=== PATIENT | female | born 1975 | race Caucasian/White ===

== ENCOUNTER 2023-01-26 11:41 | Observation (INO) ==
[2023-01-26] MEDS ORDERED: SODIUM CHLORIDE 0.9% 1000ML 1,000 ML IV ONE (11:51)
[2023-01-26 12:06] LABS: Basophils # (auto) 0.04 K/uL (0-0.2); Basophils % (auto) 0.4 %; Eosinophils # (auto) 0.15 K/uL (0-0.50); Eosinophils % (auto) 1.5 %; Hematocrit (blood only) 46.8 % (37.0-47.0); Hemoglobin 15.7 g/dl (12.0-16.0); Immature Granulocytes # (auto) 0.04 K/uL (0.01-0.20); Immature Granulocytes % (auto) 0.4 %; Lymphocytes # (auto) 2.82 K/uL (1.2-3.4); Lymphocytes % (auto) 28.4 %; Mean Corpuscular Hemoglobin 31.7 pg (25.0-34.0); Mean Corpuscular Hgb Conc 33.5 g/dL (32.0-36.0); Mean Corpuscular Volume 94.4 fL (80.0-100.0); Mean Platelet Volume 10.1 fL (9.4-12.4); Monocytes # (auto) 0.73 K/uL (0.11-0.59); Monocytes % (auto) 7.4 %; Neutrophils # (auto) 6.14 K/uL (1.40-6.50); Neutrophils % (auto) 61.9 %; Platelet Count 284 K/uL (130-400); RDW Coefficient of Variation 12.6 % (11.5-14.5); RDW Standard Deviation 43.5 fL (36.4-46.3); Red Blood Count 4.96 M/uL (4.20-5.40); White Blood Count 9.92 K/ul (4.8-10.8)
[2023-01-26] MEDS ORDERED: OPTIRAY 320 500ml IV ONE (12:11)
[2023-01-26 12:12] LABS: iSTAT Creatinine 0.6 mg/dl (0.6-1.3); iSTAT Hemoglobin 16.7 g/dl (12.0-16.0); iSTAT Ionized Calcium 1.23 mmol/l (1.12-1.32); iSTAT Potassium 3.7 mmol/L (3.3-5.0)
[2023-01-26 12:17] LABS: INR 0.9 (0.9-1.1); Prothrombin Time 10.3 Seconds (9.0-12.0)
[2023-01-26 12:27] LABS: Alanine Aminotransferase 32 U/L (7-52); Albumin Globulin Ratio 1.4 (0.9-2); Albumin Level 4.6 gm/dl (3.4-5.0); Alkaline Phosphatase 87 U/L (34-104); Anion Gap 8 (3-11); Aspartate Aminotransferase 35 U/L (13-39); BUN Creatinine Ratio 13.4 (10-20); Bilirubin,Total 0.3 mg/dl (0.2-1.0); Blood Urea Nitrogen 9 mg/dl (6-23); Calcium 9.6 mg/dl (8.6-10.3); Carbon Dioxide 26 mmol/L (21-32); Chloride 104 mmol/L (98-107); Creatinine Clr Calc Pharmacy 117.9 ml/min; Est GFR (African American) 118.8 ml/min; Est GFR (Non-African American) 102.5 ml/min; Globulin 3.2 gm/dl (2.5-4.0); Glucose 91 mg/dl (70-99(Fasting)); Magnesium 2.1 mg/dl (1.7-2.4); Potassium 3.7 mmol/L (3.5-5.1); Sodium 138 mmol/L (136-145); Total Protein 7.8 gm/dl (6.0-8.3)
--- NOTE | 2023-01-26 12:28 | Emergency Department Note ---
Impression & Plan Stroke-like symptoms, Headache ED Provider Note NAME: GENARO OCASIO AGE: 48 SEX: F : 1975 ARRIVES VIA: Walk-In INFORMANT: Patient ED PROVIDER(S): Martín Allred DO CHIEF COMPLAINT: dizzy HPI: Patient is a 48-year-old female who presents to the ER for initially diz ziness which started an hour prior to arrival. Following this she started noticing numbness in her face left arm and left leg. She initially said that it felt weak but she later elaborated that it was numb. Family notes that she had trouble talking and could not get her words out as well. She also notes that she lost vision in her left eye for several seconds. Speech has come back. Loss of vision has resolved. She still has numbness. She does have a history of migraines but notes that she has no headache before this or following currently. Denies any chest pain or shortness of breath. No dysuria, urgency, or frequency. No other exacerbating or remitting factors. PAST MEDICAL HISTORY:See Below PAST SURGICAL HISTORY:See Below FAMILY HISTORY:See Below SOCIAL HISTORY:See Below HOME MEDICATIONS:See Below ALLERGIES:See Below VITALS:See Below PHYSICAL EXAMINATION: GENERAL: Sitting up in bed, alert, anxious, disheveled EYE EXAM: normal conjunctiva. PERRL and EOM's intact. OROPHARYNX: no exudate, no erythema, lips, buccal mucosa, and tongue normal and mucous membranes are moist NECK: supple, no nuchal rigidity, no adenopathy, non-tender LUNGS: Clear to auscultation. Normal chest wall mechanics HEART: no murmurs, S1 normal and S2 normal ABDOMEN: abdomen soft, non-tender, normo-active bowel sounds, no masses, no rebound or guarding. BACK: Back is symmetrical on inspection and there is no deformity, no midline tenderness, no CVA tenderness. SKIN: no rashes and no bruising UPPER EXTREMITIES: upper extremities are grossly normal. LOWER EXTREMITIES: No pitting edema. NEURO EXAM: Normal sensorium, cranial nerves II-XI intact, normal speech, no weakness of arms, no weakness of legs. No drift. Finger to nose intact. Gross sensation intact. MEDICAL DECISION MAKING: Patient is a 48-year-old female who presents the ER for above-stated complaint. IV was established blood work was obtained. History was obtained from both the patient and father who are present at bedside. Labs show no significant leukocytosis or anemia. INR unremarkable. BMP along LFTs bilirubin was unremarkable. Troponin was negative. COVID-negative. Stroke alert was called upon presentation to a 1 on although only remaining symptoms were subjective paresthesias. I discussed the case with Dr. Whittington who evaluated the patient via telestroke neurology. Recommended no TNK and admission as well as aspirin and additional work-up. This was discussed with the hospitalist for further hugh luation management treatment. Patient was given aspirin while in the ER. [facility] Nursing notes reviewed. Limited review of prior medical records performed Vital Signs: reviewed and remarkable for HTN Differential diagnosis: Differential Diagnosis includes but is not limited to ischemic Stroke, hemorrhagic stroke, bells palsy, mass, neoplasm, migraine headache, seizure, subarachnoid hemorrhage, TIA, and transient global amnesia. ER treatment provided: See below Diagnostics interpreted by me include EKG and cardiac monitoring as listed belo w: -Cardiac Monitoring: An order was placed for continuous cardiac monitoring. The monitor shows a rate of 92 with sinus rhythm. -ECG: Sinus tachycardia rate of 104 Left axis No PVCs QTc 464 -Laboratory studies:Interpreted by me as stated above in MDM and shown below. Imaging studies: Xrays: As interpreted by me: Portable AP upright 1 view of the chest shows no pneumonia CTs show: CT angios of the head and neck were negative Consultation(s): As described in MDM Procedures:none Critical Care: None Past Med/Surg History Medical History (Updated 01/26/23 @ 14:26 by Martín Allred DO) Depression with anxiety GERD (gastroesophageal reflux disease) Migraine Surgical History (Updated 01/26/23 @ 12:55 by Ximena Waggoner PA-C) Gastric bypass status for obesity H/O laminectomy Hx of bilateral breast reduction surgery Hx of cholecystectomy Hx of esophagogastroduodenoscopy Hx of gastric bypass Family History (Updated 01/26/23 @ 12:55 by Ximena Waggoner PA-C) Father Coronary heart disease stents early 50s Diabetes Dyslipidemia Mother Coronary heart disease Hypertension Social History (Updated 01/26/23 @ 13:00 by Ximena Waggoner PA-C) Smoking Status: Never smoker Hx Alcohol Use: Yes Hx Substance Use: No Preferred Language: Nigerien Communication Ability: Effective marital status: Current Living Situation: Spouse Feels Safe at Home: Yes Allergies Allergies Allergy/AdvReac Type Severity Reaction Status Date / Time hydrocodone Allergy Unknown CHEST PAIN Verified 07/10/14 12:25 hydromorphone Allergy Unknown CHEST PAIN Verified 07/10/14 12:25 oxycodone Allergy Unknown CHEST PAIN Verified 07/10/14 12:25 NSAIDS (Non-Steroidal AdvReac Unknown d/t Verified 12/19/11 22:31 Anti-Inflamma gastric bypass Home Meds Home Medications Medication Instructions Recorded Confirmed amitriptyline 25 mg tablet 25 mg PO HS 01/26/23 01/26/23 buspirone 15 mg tablet 15 mg PO BID 01/26/23 01/26/23 ergocalciferol (vitamin D2) 1,250 1,250 mcg PO KWAN 01/26/23 01/26/23 mcg (50,000 unit) capsule escitalopram oxalate 20 mg tablet 20 mg PO DAILY 01/26/23 01/26/23 omeprazole 40 mg capsule,delayed 40 mg PO DAILY 01/26/23 01/26/23 release pediatric [id number] 4 tab PO BID 01/26/23 01/26/23 (Flintstones Complete (iron) chewable tablet) rizatriptan 10 mg tablet 10 mg PO DAILY PRN Migraine 01/26/23 01/26/23 Headache semaglutide 2 mg/dose (8 mg/3 mL) 2 mg subcut KWAN 01/26/23 01/26/23 subcutaneous pen injector (Ozempic) Results & Data (ED) Vital Signs Vital Signs - 24 hr 01/26/23 11:44 01/26/23 12:18 01/26/23 12:30 Temperature 37 C Temperature Source Temporal Artery Scan Pulse Rate 151 H Pulse Rate [Apical] 104 H 98 H Pulse Rate from SpO2 Sensor Pulse Rhythm [Apical] Regular Regular Respiratory Rate 20 16 16 Respiratory Effort / Characteristics Non-Labored Spontaneous Non-Labored Non-Labored Respiratory Depth Normal Normal Normal Respiratory Pattern Regular Blood Pressure 201/167 H Blood Pressure [Right Arm] 200/105 H 156/101 H Blood Pressure Mean 178 Blood Pressure Mean [Right Arm] 136 119 Pulse Oximetry 92 100 99 Oxygen Delivery Method Room Air Room Air Room Air Sepsis Recent Fever Within 48 Hours No Sepsis New/Unexplained Change in Mental Status No Sepsis Action Taken by Nursing No Action Required 01/26/23 12:20 01/26/23 13:16 01/26/23 13:15 Temperature Temperature Source Pulse Rate 111 H 94 H Pulse Rate [Apical] 91 H Pulse Rate from SpO2 Sensor 88 Pulse Rhythm [Apical] Regular Respiratory Rate 16 17 Respiratory Effort / Characteristics Non-Labored Respiratory Depth Normal Respiratory Pattern Blood Pressure 157/109 H Blood Pressure [Right Arm] 157/109 H Blood Pressure Mean 125 Blood Pressure Mean [Right Arm] 125 Pulse Oximetry 99 99 Oxygen Delivery Method Room Air Sepsis Recent Fever Within 48 Hours Sepsis New/Unexplained Change in Mental Status Sepsis Action Taken by Nursing 01/26/23 14:03 Temperature Temperature Source Pulse Rate 90 Pulse Rate [Apical] Pulse Rate from SpO2 Sensor 94 H Pulse Rhythm [Apical] Respiratory Rate 19 Respiratory Effort / Characteristics Respiratory Depth Respiratory Pattern Blood Pressure 163/105 H Blood Pressure [Right Arm] Blood Pressure Mean 124 Blood Pressure Mean [Right Arm] Pulse Oximetry 99 Oxygen Delivery Method Sepsis Recent Fever Within 48 Hours Sepsis New/Unexplained Change in Mental Status Sepsis Action Taken by Nursing Laboratory Data 01/26/23 11:55 01/26/23 11:55 Lab Results 01/26/23 01/26/23 01/26/23 Range/Units 11:53 11:55 11:55 WBC 9.92 (4.8-10.8) K/ul RBC 4.96 (4.20-5.40) M/uL Hgb 15.7 (12.0-16.0) g/dl POC Hgb (12.0-16.0) g/dl Hct 46.8 (37.0-47.0) % POC Hct (37-47) % MCV 94.4 (80.0-100.0) fL MCH 31.7 (25.0-34.0) pg MCHC 33.5 (32.0-36.0) g/dL RDW Std Deviation 43.5 (36.4-46.3) fL RDW Coeff of Cassandra 12.6 (11.5-14.5) % Plt Count 284 (130-400) K/uL MPV 10.1 (9.4-12.4) fL Immature Gran % (Auto) 0.4 % Neut % (Auto) 61.9 % Lymph % (Auto) 28.4 % Anderson % (Auto) 7.4 % Eos % (Auto) 1.5 % Baso % (Auto) 0.4 % Neut # (Auto) 6.14 (1.40-6.50) K/uL Lymph # (Auto) 2.82 (1.2-3.4) K/uL Anderson # (Auto) 0.73 H (0.11-0.59) K/uL Eos # (Auto) 0.15 (0-0.50) K/uL Baso # (Auto) 0.04 (0-0.2) K/uL Immature Gran # (Auto) 0.04 (0.01-0.20) K/uL PT 10.3 (9.0-12.0) Seconds INR 0.9 (0.9-1.1) APTT 27.0 (21.0-31.0) Seconds PTT Ratio 1.0 POC Sodium (135-144) mmol/L Sodium (136-145) mmol/L POC Potassium (3.3-5.0) mmol/L Potassium (3.5-5.1) mmol/L POC Chloride (101-112) mmol/L Chloride (98-107) mmol/L Carbon Dioxide (21-32) mmol/L POC Total CO2 (24-31) mmol/L Anion Gap (3-11) POC Anion Gap (16-25) mmol/L POC BUN (7-18) mg/dl BUN (6-23) mg/dl Creatinine (0.6-1.2) mg/dl POC Creatinine (0.6-1.3) mg/dl Est Cr Clr Drug Dosing ml/min Est GFR ( Amer) ml/min Est GFR (Non-Af Amer) ml/min BUN/Creatinine Ratio (10-20) Glucose (70-99(Fasting)) mg/dl POC Glucose 91 (70-99) mg/dl POC Glucose (other) (70-99) mg/dl Calcium (8.6-10.3) mg/dl POC Ioniz Calcium Marimar (1.12-1.32) mmol/l Magnesium (1.7-2.4) mg/dl Total Bilirubin (0.2-1.0) mg/dl AST (13-39) U/L ALT (7-52) U/L Alkaline Phosphatase (34-104) U/L Troponin I High Sens (0-14) pg/ml Total Protein (6.0-8.3) gm/dl Albumin (3.4-5.0) gm/dl Globulin (2.5-4.0) gm/dl Albumin/Globulin Ratio (0.9-2) SARS-CoV-2, RNA, NAAT (NEGATIVE) 01/26/23 01/26/23 01/26/23 Range/Units 11:55 11:59 12:50 WBC (4.8-10.8) K/ul RBC (4.20-5.40) M/uL Hgb (12.0-16.0) g/dl POC Hgb 16.7 H (12.0-16.0) g/dl Hct (37.0-47.0) % POC Hct 49 H (37-47) % MCV (80.0-100.0) fL MCH (25.0-34.0) pg MCHC (32.0-36.0) g/dL RDW Std Deviation (36.4-46.3) fL RDW Coeff of Cassandra (11.5-14.5) % Plt Count (130-400) K/uL MPV (9.4-12.4) fL Immature Gran % (Auto) % Neut % (Auto) % Lymph % (Auto) % Anderson % (Auto) % Eos % (Auto) % Baso % (Auto) % Neut # (Auto) (1.40-6.50) K/uL Lymph # (Auto) (1.2-3.4) K/uL Anderson # (Auto) (0.11-0.59) K/uL Eos # (Auto) (0-0.50) K/uL Baso # (Auto) (0-0.2) K/uL Immature Gran # (Auto) (0.01-0.20) K/uL PT (9.0-12.0) Seconds INR (0.9-1.1) APTT (21.0-31.0) Seconds PTT Ratio POC Sodium 139 (135-144) mmol/L Sodium 138 (136-145) mmol/L POC Potassium 3.7 (3.3-5.0) mmol/L Potassium 3.7 (3.5-5.1) mmol/L POC Chloride 102 (101-112) mmol/L Chloride 104 (98-107) mmol/L Carbon Dioxide 26 (21-32) mmol/L POC Total CO2 25 (24-31) mmol/L Anion Gap 8 (3-11) POC Anion Gap 17.0 (16-25) mmol/L POC BUN 8 (7-18) mg/dl BUN 9 (6-23) mg/dl Creatinine 0.67 (0.6-1.2) mg/dl POC Creatinine 0.6 (0.6-1.3) mg/dl Est Cr Clr Drug Dosing 117.9 ml/min Est GFR ( Amer) 118.8 ml/min Est GFR (Non-Af Amer) 102.5 ml/min BUN/Creatinine Ratio 13.4 (10-20) Glucose 91 (70-99(Fasting)) mg/dl POC Glucose (70-99) mg/dl POC Glucose (other) 94 (70-99) mg/dl Calcium 9.6 (8.6-10.3) mg/dl POC Ioniz Calcium Marimar 1.23 (1.12-1.32) mmol/l Magnesium 2.1 (1.7-2.4) mg/dl Total Bilirubin 0.3 (0.2-1.0) mg/dl AST 35 (13-39) U/L ALT 32 (7-52) U/L Alkaline Phosphatase 87 (34-104) U/L Troponin I High Sens < 2.3 (0-14) pg/ml Total Protein 7.8 (6.0-8.3) gm/dl Albumin 4.6 (3.4-5.0) gm/dl Globulin 3.2 (2.5-4.0) gm/dl Albumin/Globulin Ratio 1.4 (0.9-2) SARS-CoV-2, RNA, NAAT NEGATIVE (NEGATIVE) Administered Medications Discontinued Medications Acetaminophen/Butalbital/Caffeine (Butalbital/Acetamin/Caffeine Tab) 1 tab PO NOW STA Stop: 01/26/23 13:44 Last Admin: 01/26/23 14:10 Dose: 1 tab Documented By: DAVE Aspirin (Aspirin Chew 324 Mg) 324 mg PO NOW STA Stop: 01/26/23 12:36 Last Admin: 01/26/23 12:45 Dose: 324 mg Documented By: MIGUELINA Sodium Chloride (Nss 1000ml) 1,000 mls @ 999 mls/hr IV .Q1H1M ONE Stop: 01/26/23 12:51 Last Admin: 01/26/23 12:10 Dose: 999 mls/hr Documented By: MIGUELINA Ioversol (Optiray 320 500ml) 120 ml IV ONCE ONE Stop: 01/26/23 12:12 Last Admin: 01/26/23 12:12 Dose: 120 ml Documented By: STEFANIE Rizatriptan Benzoate (Rizatriptan Benzoate 10 Mg Tab) 10 mg PO NOW STA Stop: 01/26/23 13:30 Last Admin: 01/26/23 14:13 Dose: Not Given Documented By: DAVE Imaging Data Radiologist's Impression: Chest X-Ray 01/26/23 11:51 XR chest 1V portable HISTORY: neuro deficit, acute stroke suspected COMPARISON: None. FINDINGS: The lungs are clear. Cardiac silhouette is normal in size. No pleural effusions. No pneumothorax. IMPRESSION: No acute process. ACT 112: Negative or not required by law. Electronically signed by: Fei Unger M.D. 01/26/2023 1:[address] 01/26/23 11:51 CT OF THE HEAD WITHOUT CONTRAST CLINICAL HISTORY: neuro deficit, acute stroke suspected COMPARISON STUDY: No previous studies for comparison. TECHNIQUE: Helical axial images of the head were obtained without IV contrast. Automated exposure control was utilized for the study. A dose lowering technique was utilized adhering to the principles of ALARA. FINDINGS: This study is mildly compromised by motion artifact. No acute intracranial hemorrhage, midline shift or mass effect is present. The ventricular system is unremarkable. The basal cisterns are patent. No extra- axial collections are present. There are no findings to suggest acute dural sinus thrombosis or acute territorial infarct. There are mucous retention cysts within the bilateral maxillary sinuses. Minimal ethmoid sinus mucosal thickening. IMPRESSION: No acute intracranial findings. ACT 112: Negative or not required by law. Electronically signed by: Atif Larsen M.D. 01/26/2023 12:33 PM Head CTA 01/26/23 11:51 CT angio head w con, CT angio neck with con CLINICAL HISTORY: neuro deficit, acute stroke suspected TECHNIQUE: CT angiography of the head and neck was performed following intravenous administration of iodinated contrast. Coronal and sagittal MIPS were obtained from the axial data set and were submitted for review. Automated dose lowering techniques and/or adjustment according to patient size were utilized for this examination. All measurements were calculated based on NASCET criteria. CT DOSE: 1882.35 mGy.cm Comparison: None available at the time of this dictation. FINDINGS: Lungs and soft tissues are unremarkable. CTA Neck: A 3 vessel aortic arch is shown. There is no significant atherosclerotic plaque in the aortic arch or the origins of the innominate, left common carotid, and left subclavian arteries. The common carotid, external carotid, cervical segments of the internal carotid arteries, and the cervical segments of the vertebral arteries are patent without hemodynamically significant stenosis. The left vertebral artery is dominant. CTA Head: The anterior and posterior cerebral circulations are patent. origin of the left posterior cerebral artery is seen. IMPRESSION: 1. No occlusion, hemodynamically significant stenosis, or dissection in the major cervical arteries. 2. No occlusion, hemodynamically significant stenosis, aneurysm, dissection, or arteriovenous malformation in the major intracranial arteries. Assessment of stenosis of the internal carotid arteries is based on NASCET criteria. ACT 112: Negative or not required by law. Electronically signed by: Eagle Lugo M.D. 01/26/2023 12:34 PM Neck CTA 01/26/23 11:51 CT angio head w con, CT angio neck with con CLINICAL HISTORY: neuro deficit, acute stroke suspected TECHNIQUE: CT angiography of the head and neck was performed following intraven ous administration of iodinated contrast. Coronal and sagittal MIPS were obtained from the axial data set and were submitted for review. Automated dose lowering techniques and/or adjustment according to patient size were utilized for this examination. All measurements were calculated based on NASCET criteria. CT DOSE: 1882.35 mGy.cm Comparison: None available at the time of this dictation. FINDINGS: Lungs and soft tissues are unremarkable. CTA Neck: A 3 vessel aortic arch is shown. There is no significant atherosclerotic plaque in the aortic arch or the origins of the innominate, left common carotid, and left subclavian arteries. The common carotid, external carotid, cervical segments of the internal carotid arteries, and the cervical segments of the vertebral arteries are patent without hemodynamically significant stenosis. The left vertebral artery is dominant. CTA Head: The anterior and posterior cerebral circulations are patent. origin of the left posterior cerebral artery is seen. IMPRESSION: 1. No occlusion, hemodynamically significant stenosis, or dissection in the m ajor cervical arteries. 2. No occlusion, hemodynamically significant stenosis, aneurysm, dissection, or arteriovenous malformation in the major intracranial arteries. Assessment of stenosis of the internal carotid arteries is based on NASCET criteria. ACT 112: Negative or not required by law. Electronically signed by: Eagle Lugo M.D. 01/26/2023 12:34 PM Discharge Plan Visit Data Chief Complaint: Stroke/CVA Symptoms Stated Complaint: DIZZY,FACE NUMBNESS LEFT HAND ARM NUMBNESS ED Provider: Martín Allred Discharge Problem: Stroke-like symptoms, Headache Forms Stand Alone Forms: My [facility] [employer] Prescriptions Prescriptions: No Action rizatriptan 10 mg tablet 10 mg PO DAILY PRN (Reason: Migraine Headache) omeprazole 40 mg Capsule,Delayed Release(Dr/Ec) 40 mg PO DAILY amitriptyline 25 mg tablet 25 mg PO HS buspirone 15 mg tablet 15 mg PO BID escitalopram oxalate 20 mg Tablet 20 mg PO DAILY Ozempic 2 mg/dose (8 mg/3 mL) pen injector 2 mg SUBCUT KWAN ergocalciferol (vitamin D2) 1,250 mcg (50,000 unit) capsule 1,250 mcg PO KWAN Flintstones Complete (iron) Tablet,Chewable 4 tab PO BID Rx Instructions: administer with a meal Referrals Referrals: Ne Meyer MD [Primary Care Provider] -
[2023-01-26 12:34] LABS: Troponin I High Sensitivity < 2.3 pg/ml (0-14)
--- NOTE | 2023-01-26 12:34 | CT Scan Report ---
CT OF THE HEAD WITHOUT CONTRAST CLINICAL HISTORY: neuro deficit, acute stroke suspected COMPARISON STUDY: No previous studies for comparison. TECHNIQUE: Helical axial images of the head were obtained without IV contrast. Automated exposure con trol was utilized for the study. A dose lowering technique was utilized adhering to the principles o f ALARA. FINDINGS: This study is mildly compromised by motion artifact. No acute intracranial hemorrhage, midl ine shift or mass effect is present. The ventricular system is unremarkable. The basal cisterns are p atent. No extra-axial collections are present. There are no findings to suggest acute dural sinus thr ombosis or acute territorial infarct. There are mucous retention cysts within the bilateral maxillary sinuses. Minimal ethmoid sinus mucosal thickening. IMPRESSION: No acute intracranial findings. ACT 112: Negative or not required by law. Electronically signed by: Atif Larsen M.D. 01/26/2023 12:33 PM
[2023-01-26] MEDS ORDERED: ASPIRIN CHEW 324 MG PO STA (12:35)
--- NOTE | 2023-01-26 12:35 | CT Scan Report ---
CT angio head w con, CT angio neck with con CLINICAL HISTORY: neuro deficit, acute stroke suspected TECHNIQUE: CT angiography of the head and neck was performed following intravenous administration of iodinated contrast. Coronal and sagittal MIPS were obtained from the axial data set and were submitt ed for review. Automated dose lowering techniques and/or adjustment according to patient size were u tilized for this examination. All measurements were calculated based on NASCET criteria. CT DOSE: 1882.35 mGy.cm Comparison: None available at the time of this dictation. FINDINGS: Lungs and soft tissues are unremarkable. CTA Neck: A 3 vessel aortic arch is shown. There is no significant atherosclerotic plaque in the aor tic arch or the origins of the innominate, left common carotid, and left subclavian arteries. The co mmon carotid, external carotid, cervical segments of the internal carotid arteries, and the cervical segments of the vertebral arteries are patent without hemodynamically significant stenosis. The left vertebral artery is dominant. CTA Head: The anterior and posterior cerebral circulations are patent. origin of the left post erior cerebral artery is seen. IMPRESSION: 1. No occlusion, hemodynamically significant stenosis, or dissection in the major cervical arteries. 2. No occlusion, hemodynamically significant stenosis, aneurysm, dissection, or arteriovenous malfor mation in the major intracranial arteries. Assessment of stenosis of the internal carotid arteries is based on NASCET criteria. ACT 112: Negative or not required by law. Electronically signed by: Eagle Lugo M.D. 01/26/2023 12:34 PM
--- NOTE | 2023-01-26 13:14 | XRay Report ---
XR chest 1V portable HISTORY: neuro deficit, acute stroke suspected COMPARISON: None. FINDINGS: The lungs are clear. Cardiac silhouette is normal in size. No pleural effusions. No pneumot horax. IMPRESSION: No acute process. ACT 112: Negative or not required by law. Electronically signed by: Fei Unger M.D. 01/26/2023 1:12 PM
[2023-01-26] MEDS ORDERED: RIZATRIPTAN BENZOATE 10 MG TAB PO STA ×2 (13:29→16:00)
[2023-01-26] MEDS ORDERED: BUTALBITAL/ACETAMIN/CAFFEINE TAB PO STA (13:43)
--- NOTE | 2023-01-26 13:51 | History & Physical Report ---
Date of Service January 26, 2023 Assessment & Plan (1) Stroke-like symptoms: (2) Headache: Plan This is a 48-year-old female who has significant past medical history of prediabetes, history of gastric bypass, migraine, GERD, depression with anxiety who presents ED secondary to strokelike symptoms. Symptoms started at approximately 11 AM and have now resolved by 1315. Symptoms included left-sided 1 second transient visual loss, left-sided facial numbness, left upper and lower extremity numbness and expressive aphasia. Symptoms have now resolved but have proceeded with a left-sided headache and photophobia which feels similar to her previous migraines. Strokelike symptoms Symptoms appear consistent with complex migraine; however given age and prediabetes will rule out CVA Obtain MRI of brain Head CT, head and neck CTA completely unremarkable Consult neurology Dr. Charlton a1c, lipid panel, echocardiogram If MRI negative, can likely D/C will give fiorcet x 1 now for BAKER, if MRI negative pt can take her home maxalt last a1c 5.5 08/2022; Lipid panel tirg 183, Chol 193, HDL 54, LDL 102 08/2022 follows [facility] for migraines - last saw in 2018, per notes gets R sided BAKER with numbness, paraesthesias and R eye visual change in past Hx of Gastric bypass Pre Diabetes - on ozempic vit d def - on high dose vit d weekly depression with anx - on buspar and escitalopram Dispo: admit for stroke w/u, if able to complete today possibly discharge later on FULL CODE PCP: Kalyan Mora A total of 75 was spent coordinating, documenting, and providing care for this patient excluding time spent in the performance of separately billed services. This included personally viewing all current laboratories and imaging studies, medication reconciliation, outpatient chart review, and discussion with specialists. Pt was seen and examined in collaboration with Dr. Garcia, please see addendum History of Present Illness Chief Complaint: Strokelike symptoms prior to arrival. Primary Care Provider: Ne Meyer MD This is a 48-year-old female who has significant past medical history of prediabetes, history of gastric bypass, migraine, GERD, depression with anxiety who presents ED secondary to strokelike symptoms. Patient states she was driving her father to the hospital as her mother is currently hospitalized. She passed the race with exit when she suddenly noticed an acute left-sided visual loss that lasted only seconds before her visual acuity returned. She then proceeded with the whole left side of her body feeling, off," as well as feeling, numb," and overall felt something was not right. She proceeded to bring her dad to the hospital to see her mother when she was in a patient room, sat down and felt very tremulous bilaterally. Patient states looking back she felt she was becoming very anxious over her symptoms. 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 Symptoms lasted approximately 2 hours before resolving. Whenever she was in the CT scanner she started to feel her symptoms gradually resolved. She complained of aphasia like symptoms in which she knew exactly what she wanted to say but was unable to speak. There was no facial droop, slurred speech or paralysis. She does have history of migraines. Typically they are ocular where she gets visual symptoms and no headache or just a headache. She does recall several years ago getting numbness to her face but has not had this in quite some time. She takes Maxalt for headaches currently she has a left-sided headache and photophobia. She denies any visual changes or aura. Her current headache does feel like a typical migraine. She wishes to be in the dark and go to sleep. She denies any recent illness, fever, chills, sweats, lightheadedness, dizziness, chest pain, shortness breath, nausea, vomiting, abdominal pain.In ED patient was hemodynamically stable and mildly hypertensive. Her CBC, CMP, troponin were unremarkable. She underwent head CT, head and neck CTA which were unremarkable without any acute abnormality. Chest x-ray was also clear. She received full-strength aspirin. Allergies Allergy/AdvReac Type Severity Reaction Status Date / Time hydrocodone Allergy Unknown CHEST PAIN Verified 07/10/14 12:25 hydromorphone Allergy Unknown CHEST PAIN Verified 07/10/14 12:25 oxycodone Allergy Unknown CHEST PAIN Verified 07/10/14 12:25 NSAIDS (Non-Steroidal AdvReac Unknown d/t Verified 12/19/11 22:31 Anti-Inflamma gastric bypass Home Medications Medication Instructions Recorded Confirmed Type amitriptyline 25 mg tablet 25 mg PO HS 01/26/23 01/26/23 History buspirone 15 mg tablet 15 mg PO BID 01/26/23 01/26/23 History ergocalciferol (vitamin D2) 1,250 1,250 mcg PO KWAN 01/26/23 01/26/23 History mcg (50,000 unit) capsule escitalopram oxalate 20 mg tablet 20 mg PO DAILY 01/26/23 01/26/23 History omeprazole 40 mg capsule,delayed 40 mg PO DAILY 01/26/23 01/26/23 History release pediatric [id number]-qzzo-yyp 4 tab PO BID 01/26/23 01/26/23 History (Flintstones Complete (iron) chewable tablet) rizatriptan 10 mg tablet 10 mg PO DAILY PRN Migraine 01/26/23 01/26/23 History Headache semaglutide 2 mg/dose (8 mg/3 mL) 2 mg subcut KWAN 01/26/23 01/26/23 History subcutaneous pen injector (Ozempic) Past Med/Surg History Medical History Depression with anxiety GERD (gastroesophageal reflux disease) Migraine Surgical History (Updated 01/26/23 @ 12:55 by Ximena Waggoner PA-C) Gastric bypass status for obesity H/O laminectomy Hx of bilateral breast reduction surgery Hx of cholecystectomy Hx of esophagogastroduodenoscopy Hx of gastric bypass Family History (Updated 01/26/23 @ 12:55 by Ximena Waggoner PA-C) Father Coronary heart disease stents early 50s Diabetes Dyslipidemia Mother Coronary heart disease Hypertension Social History (Updated 01/26/23 @ 13:00 by Ximena Waggoner PA-C) Smoking Status: Never smoker Second Hand Exposure: No; Do You Dip or Chew Tobacco: No; Tobacco Cessation Education Requested by Patient: No Hx Alcohol Use: Yes Alcohol type: beer Hx Substance Use: No Preferred Language: Maori Communication Ability: Effective 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 Beliefs That Will Affect Care: None marital status: Current Living Situation: Spouse Current Living Situation Comment: Son and live with also Other Information That Helps Us Care for You: No Feels Safe at Home: Yes Safety Concerns: Feels Safe At This Time Assistive Devices: None Review of Systems Review of Systems: All systems reviewed & are unremarkable except as noted in HPI & below Physical Exam Physical Exam: Constitutional: WD/WN, vitals as above, NAD, sitting up in bed, pleasant, conversing easily Head: Normocephalic, Atraumatic Eyes: PERRL, conjunctivae normal, anicteric sclerae ENMT: external ear and nose normal, oropharynx normal Neck: trachea midline, no thyromegaly normal visual inspection Respiratory: normal respiratory effort, lungs clear to auscultation, no wheeze, rales, rhonchi. Normal insp/exp effort, no accessory muscle use Cardiovascular: RRR, no murmur, no edema Vessels: no JVD or carotid bruit Chest: normal inspection of chest Abdomen: normal bowel sounds, soft, nontender, no hepatosplenomegaly Musculoskeletal: no cyanosis or clubbing, extremities motor strength 5/5 Skin: no rashes, warm and dry normal turgor Neurologic: PERRL, EOMI, accommodation nl, no face palsy, no dysarthria CN's II-XI intact bilaterally and moves all extremities Psychiatric: A+Ox3, euthymic affect Lymphatic: no cervical or axillary lymphadenopathy : deferred Results & Data Results & Data Vital Signs (Past 12 Hours) Vital Signs Temp Pulse Pulse Resp BP BP Pulse Ox 01/26/23 13:16 91 H 16 157/109 H 99 01/26/23 12:20 111 H 01/26/23 12:30 98 H 16 156/101 H 99 01/26/23 12:18 104 H 16 200/105 H 100 01/26/23 11:44 37 C 151 H 20 201/167 H 92 O2 Del Method 01/26/23 13:16 Room Air 01/26/23 12:20 01/26/23 12:30 Room Air 01/26/23 12:18 Room Air 01/26/23 11:44 Room Air Diagnostic Findings Chest X-Ray 01/26/23 11:51 XR chest 1V portable HISTORY: neuro deficit, acute stroke suspected COMPARISON: None. FINDINGS: The lungs are clear. Cardiac silhouette is normal in size. No pleural effusions. No pneumothorax. IMPRESSION: No acute process. ACT 112: Negative or not required by law. Electronically signed by: Fei Unger M.D. 01/26/2023 1:[address] 01/26/23 11:51 CT OF THE HEAD WITHOUT CONTRAST CLINICAL HISTORY: neuro deficit, acute stroke suspected COMPARISON STUDY: No previous studies for comparison. TECHNIQUE: Helical axial images of the head were obtained without IV contrast. Automated exposure control was utilized for the study. A dose lowering technique was utilized adhering to the principles of ALARA. FINDINGS: This study is mildly compromised by motion artifact. No acute intracranial hemorrhage, midline shift or mass effect is present. The ventricular system is unremarkable. The basal cisterns are patent. No extra- axial collections are present. There are no findings to suggest acute dural sinus thrombosis or acute territorial infarct. There are mucous retention cysts within the bilateral maxillary sinuses. Minimal ethmoid sinus mucosal thickening. IMPRESSION: No acute intracranial findings. ACT 112: Negative or not required by law. Electronically signed by: Atif Larsen M.D. 01/26/2023 12:33 PM Head CTA 01/26/23 11:51 CT angio head w con, CT angio neck with con CLINICAL HISTORY: neuro deficit, acute stroke suspected TECHNIQUE: CT angiography of the head and neck was performed following intravenous administration of iodinated contrast. Coronal and sagittal MIPS were obtained from the axial data set and were submitted for review. Automated dose lowering techniques and/or adjustment according to patient size were utilized for this examination. All measurements were calculated based on NASCET criteria. CT DOSE: 1882.35 mGy.cm Comparison: None available at the time of this dictation. FINDINGS: Lungs and soft tissues are unremarkable. CTA Neck: A 3 vessel aortic arch is shown. There is no significant atherosclerotic plaque in the aortic arch or the origins of the innominate, left common carotid, and left subclavian arteries. The common carotid, external carotid, cervical segments of the internal carotid arteries, and the cervical segments of the vertebral arteries are patent without hemodynamically significant stenosis. The left vertebral artery is dominant. CTA Head: The anterior and posterior cerebral circulations are patent. origin of the left posterior cerebral artery is seen. IMPRESSION: 1. No occlusion, hemodynamically significant stenosis, or dissection in the major cervical arteries. 2. No occlusion, hemodynamically significant stenosis, aneurysm, dissection, or arteriovenous malformation in the major intracranial arteries. Assessment of stenosis of the internal carotid arteries is based on NASCET criteria. ACT 112: Negative or not required by law. Electronically signed by: Eagle Lugo M.D. 01/26/2023 12:34 PM Neck CTA 01/26/23 11:51 CT angio head w con, CT angio neck with con CLINICAL HISTORY: neuro deficit, acute stroke suspected TECHNIQUE: CT angiography of the head and neck was performed following intravenous administration of iodinated contrast. Coronal and sagittal MIPS were obtained from the axial data set and were submitted for review. Automated dose lowering techniques and/or adjustment according to patient size were utilized for this examination. All measurements were calculated based on NASCET criteria. CT DOSE: 1882.35 mGy.cm Comparison: None available at the time of this dictation. FINDINGS: Lungs and soft tissues are unremarkable. CTA Neck: A 3 vessel aortic arch is shown. There is no significant ather osclerotic plaque in the aortic arch or the origins of the innominate, left common carotid, and left subclavian arteries. The common carotid, external carotid, cervical segments of the internal carotid arteries, and the cervical segments of the vertebral arteries are patent without hemodynamically significant stenosis. The left vertebral artery is dominant. CTA Head: The anterior and posterior cerebral circulations are patent. origin of the left posterior cerebral artery is seen. IMPRESSION: 1. No occlusion, hemodynamically significant stenosis, or dissection in the major cervical arteries. 2. No occlusion, hemodynamically significant stenosis, aneurysm, dissection, or arteriovenous malformation in the major intracranial arteries. Assessment of stenosis of the internal carotid arteries is based on NASCET criteria. ACT 112: Negative or not required by law. Electronically signed by: Eagle Lugo M.D. 01/26/2023 12:34 PM Medications Administered Medication List Discontinued Medications Aspirin (Aspirin Chew 324 Mg) 324 mg PO NOW STA Stop: 01/26/23 12:36 Last Admin: 01/26/23 12:45 Dose: 324 mg Documented By: MIGUELINA Sodium Chloride (Nss 1000ml) 1,000 mls @ 999 mls/hr IV .Q1H1M ONE Stop: 01/26/23 12:51 Last Admin: 01/26/23 12:10 Dose: 999 mls/hr Documented By: MIGUELINA Ioversol (Optiray 320 500ml) 120 ml IV ONCE ONE Stop: 01/26/23 12:12 Last Admin: 01/26/23 12:12 Dose: 120 ml Documented By: STEFANIE ECG Additional Comments: Sinus tachycardia at 104 bpm, no ST or T wave change, otherwise unremarkable EKG. This was interpreted and viewed by me. COVID-19 Results Results COVID-19 Adm Lab Results: RBC 4.96 M/uL (4.20-5.40) 01/26/23 WBC 9.92 K/ul (4.8-10.8) 01/26/23 Hgb 15.7 g/dl (12.0-16.0) 01/26/23 Hct 46.8 % (37.0-47.0) 01/26/23 Plt Count 284 K/uL (130-400) 01/26/23 Neutrophils (%) (Auto) 61.9 % 01/26/23 Lymphocytes (%) (Auto) 28.4 % 01/26/23 Monocytes # (Auto) 0.73 K/uL (0.11-0.59) H 01/26/23 Eosinophils # (Auto) 0.15 K/uL (0-0.50) 01/26/23 Immature Granulocyte % (Auto) 0.4 % 01/26/23 Neutrophils # (Auto) 6.14 K/uL (1.40-6.50) 01/26/23 Lymphocytes # (Auto) 2.82 K/uL (1.2-3.4) 01/26/23 Monocytes # (Auto) 0.73 K/uL (0.11-0.59) H 01/26/23 Eosinophils # (Auto) 0.15 K/uL (0-0.50) 01/26/23 Basophils # (Auto) 0.04 K/uL (0-0.2) 01/26/23 Immature Granulocyte # (Auto) 0.04 K/uL (0.01-0.20) 3 Na 138 mmol/L (136-145) 01/26/23 K 3.7 mmol/L (3.5-5.1) 01/26/23 Cl 104 mmol/L (98-107) 01/26/23 CO2 26 mmol/L (21-32) 01/26/23 Anion Gap 8 (3-11) 01/26/23 BUN 9 mg/dl (6-23) 01/26/23 Creatinine 0.67 mg/dl (0.6-1.2) 01/26/23 BUN/Creatinine Ratio 13.4 (10-20) 01/26/23 Glucose Level 91 mg/dl (70-99(Fasting)) 01/26/23 Ca 9.6 mg/dl (8.6-10.3) 01/26/23 Total Bilirubin 0.3 mg/dl (0.2-1.0) 01/26/23 AST/SGOT 35 U/L (13-39) 01/26/23 ALT/SGPT 32 U/L (7-52) 01/26/23 Alkaline Phosphatase 87 U/L (34-104) 01/26/23 Total Protein 7.8 gm/dl (6.0-8.3) 01/26/23 Albumin 4.6 gm/dl (3.4-5.0) 01/26/23 Globulin 3.2 gm/dl (2.5-4.0) 01/26/23 Albumin/Globulin Ratio 1.4 (0.9-2) 01/26/23 PTT 27.0 Seconds (21.0-31.0) 01/26/23 INR 0.9 (0.9-1.1) 01/26/23 SARS-CoV-2, RNA, NAAT NEGATIVE (NEGATIVE) 01/26/23 Chest X-Ray 01/26/23 Code Status & VTE Plan Code Status FULL CODE VTE Prophylaxis Plan VTE Prophylaxis will be ordered: Yes Supervising Physician Co-Signing Physician Notes I have seen and examined the patient and have discussed the case with the provider above. I agree with the assessment and plan as stated. Patient is a 48-year-old female with a long history of complicated migraine with and without aura since she was 14 years old. She presents after noticing numbness in her face left arm and left leg. She had difficulties speaking and felt her face and mouth was heavy even though looking in the mirror she did not have evidence of facial droop. She felt some fuzziness in her head and the symptoms were not consistent with previous aura in the past. Per outpatient record review, her neurology note reports changes in vision facial numbness and right hand paresthesias which would characterize her migraines. Today she reports an acute onset of left eye/temporal pain while she was in the CT scanner after the symptoms began. These are now resolved and she is mentating and ambulating at baseline with no sensation issues. She denies history of smoking and drinks socially. On physical exam she is hemodynamically stable with slightly elevated blood pressure 156/95. This is likely circumstantial given the stress associated with symptoms and the fact that she is in the ER. She generally is well-nourished well-developed in no acute distress. She has photophobia in the left eye on exam limiting funduscopic exam which was normal on the right. Left eye appears normal from what can be seen. Injected sclerae reflective of mild irritation. Pupils PERRLA. Head normocephalic atraumatic. Mucous membranes moist. Cranial nerves II through XII grossly intact. No sensation deficits throughout all dermatomes. Strength 5 out of 5 throughout. Knee reflex 2 out of 4 bilaterally. Gait was not assessed. Cardiovascular exam revealed S1-S2 heard with no murmurs gallops or rubs. Regular rate and rhythm observed. Lungs are clear to auscultation throughout. Abdomen soft nontender nondistended. Work-up today includes CBC, normal chemistry, normal lipid panel with imaging including a brain MRI that reveals no evidence of acute infarct along with CTA of the head and neck revealing no occlusion or hemodynamically significant steno sis or dissection of the major cervical or in the major intracranial arteries. Chest x-ray revealed no acute process, EKG revealed sinus tachycardia at 104 with no evidence of acute ischemia. In the ER she was given aspirin 324, 1 L of IV fluids and a Fioricet for her headache. Neurology was consulted. 1. Complicated migraine rule out stroke Patient has a long history of complex migraines with aura in the past. Symptoms today were consistent with possible TIA. Brain MRI being negative and symptoms have resolved, neurology recommends no addition of aspirin to her regimen and because this happens so infrequently, we will also not change her migraine therapy regimen. Once her headache improves and she is feeling better, will look to discharge her in stable condition. DO Jose
[2023-01-26] MEDS ORDERED: ALUMINUM/MAGNESIUM SUSP 30 ML UDC PO PRN (14:52)
[2023-01-26] MEDS ORDERED: PHARMACIST DISCHARGE MED REC CONSULT PRN (14:52)
[2023-01-26] MEDS ORDERED: ACETAMINOPHEN 325 MG TAB PO PRN (14:52)
[2023-01-26] MEDS ORDERED: POLYETHYLENE (MIRALAX) 17 GM PACK PO PRN (14:52)
[2023-01-26] MEDS ORDERED: MAGNESIUM HYDROXIDE SUSP 30 ML UDC PO PRN (14:52)
[2023-01-26] MEDS ORDERED: ONDANSETRON INJ 2 MG/ML 2 ML VIAL IV PRN (14:52)
--- NOTE | 2023-01-26 15:29 | Magnetic Resonance Report ---
MR brain wo con CLINICAL HISTORY: stroke symptoms TECHNIQUE: Multiplanar and multisequence MR images of the brain were obtained without intravenous con trast. Comparison: None available at the time of this dictation. FINDINGS: No abnormal restricted diffusion is identified. The white matter is unremarkable. The ventricular sys tem is normal in appearance. No mass is seen. There is no mass effect or midline shift. There is no e vidence of acute intraparenchymal hemorrhage. No extra axial fluid collections are seen. The corpus c allosum, pituitary gland, and cerebellar tonsils appear grossly unremarkable. Prominent emphysema is seen in bilateral maxillary sinuses. The imaged portions of the paranasal sinu ses, mastoid air cells, and orbits are unremarkable. IMPRESSION: No acute abnormality and in particular no evidence of acute infarct. ACT 112: Negative or not required by law. Electronically signed by: Eagle Lugo M.D. 01/26/2023 3:27 PM
[2023-01-26] MEDS ORDERED: RIZATRIPTAN BENZOATE 10 MG TAB PO PRN (15:54)
--- NOTE | 2023-01-26 16:11 | Neurology Consultation ---
Date of Consultation January 26, 2023 Assessment & Plan (1) Headache: With a negative MRI and vessel studies as well as her history of migraine, this is likely a complex migraine rather than TIA. With hormonal changes, headache auras and symptoms can change. As her headache frequency is every 6 months I would not recommend a change in preventative therapy. No further neurologic workup. Aspirin can be stopped. Please contact us with further questions. Telehealth Consultation Telehealth Information Telehealth Information: I performed this visit using a real-time telehealth connection between my location and the patients location ([facility]). After connecting through interactive tele-video, patient was identified by name and date of and/or wristband check.Patient (or authorized healthcare sales representative trainee) was informed that this was a telemedicine visit and it was being conducted confidentially over secure lines. My office door was closed and no one else was present in the room with me.Patient (or authorized healthcare sales representative trainee) provided consent to proceed with the visit, expressed an understanding of privacy and security of the telemedicine visit, and gave permission to have a hospital sales representative trainee in the room in order to assist with the visit and to conduct portions of the visit, as needed. I informed the patient (or authorized healthcare sales representative trainee) that I reviewed their record and presented the opportunity for them to ask any questions regarding the visit today. The patient agreed to participate. History of Present Illness Reason for Consultation: Migraine Requesting Physician: Dr. Garcia Attending Physician: Nirmala Garcia, History of Present Illness Vanna Blunt is a 48 yo F with a history of migraine on amitriptyline and maxalt presenting with an episode of brief vision loss followed by aphasia and left sided weakness. While in the CT scanner in the ED the symptoms seemed to have resolved but a headache began. She no longer has a severe headache though did note a recurrent episode of mild left facial numbness. While she gets visual aura with her migraine occasionally she has never had any neurologic symptoms. Currently she is asymptomatic. Allergies Allergy/AdvReac Type Severity Reaction Status Date / Time hydrocodone Allergy Unknown CHEST PAIN Verified 07/10/14 12:25 hydromorphone Allergy Unknown CHEST PAIN Verified 07/10/14 12:25 oxycodone Allergy Unknown CHEST PAIN Verified 07/10/14 12:25 NSAIDS (Non-Steroidal AdvReac Unknown d/t Verified 04/16/12 22:31 Anti-Inflamma gastric bypass Home Medications Medication Instructions Recorded Confirmed Type amitriptyline 25 mg tablet 25 mg PO HS 01/26/23 01/26/23 History buspirone 15 mg tablet 15 mg PO BID 01/26/23 01/26/23 History ergocalciferol (vitamin D2) 1,250 1,250 mcg PO KWAN 01/26/23 01/26/23 History mcg (50,000 unit) capsule escitalopram oxalate 20 mg tablet 20 mg PO DAILY 01/26/23 01/26/23 History omeprazole 40 mg capsule,delayed 40 mg PO DAILY 01/26/23 01/26/23 History release pediatric [id number] 4 tab PO BID 01/26/23 01/26/23 History (Flintstones Complete (iron) chewable tablet) rizatriptan 10 mg tablet 10 mg PO DAILY PRN Migraine 01/26/23 01/26/23 History Headache semaglutide 2 mg/dose (8 mg/3 mL) 2 mg subcut KWAN 01/26/23 01/26/23 History subcutaneous pen injector (Ozempic) Patient History Medical History Depression with anxiety GERD (gastroesophageal reflux disease) Migraine Surgical History (Updated 01/26/23 @ 12:55 by Ximena Waggoner PA-C) Gastric bypass status for obesity H/O laminectomy Hx of bilateral breast reduction surgery Hx of cholecystectomy Hx of esophagogastroduodenoscopy Hx of gastric bypass Family History (Updated 01/26/23 @ 12:55 by Ximena Waggoner PA-C) Father Coronary heart disease stents early 50s Diabetes Dyslipidemia Mother Coronary heart disease Hypertension Social History (Updated 01/26/23 @ 13:00 by Ximena Waggoner PA-C) Smoking Status: Never smoker Second Hand Exposure: No; Do You Dip or Chew Tobacco: No; Tobacco Cessation Education Requested by Patient: No Hx Alcohol Use: Yes Alcohol type: beer Hx Substance Use: No Preferred Language: Angolan Communication Ability: Effective Railroad Accountant Required: No Beliefs That Will Affect Care: None marital status: Current Living Situation: Spouse Current Living Situation Comment: Son and live with also Other Information That Helps Us Care for You: No Feels Safe at Home: Yes Safety Concerns: Feels Safe At This Time Assistive Devices: None Review of Systems +headache Physical Exam Neurological Examination: Mental Status: Awake and alert. Oriented to person, place, and time. Fluent. Comprehension intact. Affect appropriate. Cranial Nerves: II: Reads NIHSS cards, pupils 3/3 to 2/2, III/IV/: Versions intact without nystagmus, no gaze preference. V: Facial sensation symmetric to light touch VII: Facial expression symmetric VIII: Hearing intact to voice IX/X: Palate elevates symmetrically XI: Shoulder shrug symmetric XII: Tongue midline Motor: Strength was symmetric and antigravity throughout. Pronator drift was absent. There were no abnormal movements. Results & Data Vital Signs (Past 12 Hours) Vital Signs Temp Pulse Pulse Resp BP BP Pulse Ox 01/26/23 14:52 18 100 01/26/23 14:52 01/26/23 15:48 152/87 H 01/26/23 15:03 36.6 C 82 18 156/95 H 100 01/26/23 14:49 36.8 C 86 18 156/95 H 100 01/26/23 14:29 90 19 163/105 H 99 01/26/23 14:03 90 19 163/105 H 99 01/26/23 13:15 94 H 17 157/109 H 99 01/26/23 13:16 91 H 16 157/109 H 99 01/26/23 12:20 111 H 01/26/23 12:30 98 H 16 156/101 H 99 01/26/23 12:18 104 H 16 200/105 H 100 01/26/23 11:44 37 C 151 H 20 201/167 H 92 Pulse Ox O2 Del Method O2 Del Method 01/26/23 14:52 Room Air 01/26/23 14:52 100 Room Air 01/26/23 15:48 01/26/23 15:03 Room Air 01/26/23 14:49 Room Air 01/26/23 14:29 Room Air 01/26/23 14:03 01/26/23 13:15 01/26/23 13:16 Room Air 01/26/23 12:20 01/26/23 12:30 Room Air 01/26/23 12:18 Room Air 01/26/23 11:44 Room Air Laboratory Results Abnormal lab results 01/26/23 01/26/23 Range/Units 11:55 11:59 POC Hgb 16.7 H (12.0-16.0) g/dl POC Hct 49 H (37-47) % [place] # (Auto) 0.73 H (0.11-0.59) K/uL Diagnostic Findings MRI brain - unremarkable
[2023-01-26] MEDS ORDERED: STROKE PATIENT DISCHARGE STA (17:15)
--- NOTE | 2023-01-26 17:20 | Discharge Summary ---
Discharge Summary Date of Service January 26, 2023 Notes For Next Care Provider Patient admitted to hospital due to left visual changes, expressive aphasia, paresthesias and left-sided numbness. She underwent stroke work-up with head CT, CTA head and neck, MRI which all were unremarkable. She was seen and evaluated by neurology who felt symptoms correlated with complex migraine. Medication Changes From Visit None Admission HPI Per Admitting Provider This is a 48-year-old female who has significant past medical history of prediabetes, history of gastric bypass, migraine, GERD, depression with anxiety who presents ED secondary to strokelike symptoms. Patient states she was driving her father to the hospital as her mother is currently hospitalized. She passed the race with exit when she suddenly noticed an acute left-sided visual loss that lasted only seconds before her visual acuity returned. She then proceeded with the whole left side of her body feeling, off," as well as feeling, numb," and overall felt something was not right. She proceeded to bring her dad to the hospital to see her mother when she was in a patient room, sat down and felt very tremulous bilaterally. Patient states looking back she felt she was becoming very anxious over her symptoms. 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 Symptoms lasted approximately 2 hours before resolving. Whenever she was in the CT scanner she started to feel her symptoms gradually resolved. She complained of aphasia like symptoms in which she knew exactly what she wanted to say but was unable to speak. There was no facial droop, slurred speech or paralysis. She does have history of migraines. Typically they are ocular where she gets visual symptoms and no headache or just a headache. She does recall several years ago getting numbness to her face but has not had this in quite some time. She takes Maxalt for headaches currently she has a left-sided headache and photophobia. She denies any visual changes or aura. Her current headache does feel like a typical migraine. She wishes to be in the dark and go to sleep. She denies any recent illness, fever, chills, sweats, lightheadedness, dizziness, chest pain, shortness breath, nausea, vomiting, abdominal pain.In ED patient was hemodynamically stable and mildly hypertensive. Her CBC, CMP, troponin were unremarkable. She underwent head CT, head and neck CTA which were unremarkable without any acute abnormality. Chest x-ray was also clear. She received full-strength aspirin. Admission Exam Per Admitting Provider Constitutional: WD/WN, vitals as above, NAD, sitting up in bed, pleasant, conversing easily Head: Normocephalic, Atraumatic Eyes: PERRL, conjunctivae normal, anicteric sclerae ENMT: external ear and nose normal, oropharynx normal Neck: trachea midline, no thyromegaly normal visual inspection Respiratory: normal respiratory effort, lungs clear to auscultation, no wheeze, rales, rhonchi. Normal insp/exp effort, no accessory muscle use Cardiovascular: RRR, no murmur, no edema Vessels: no JVD or carotid bruit Chest: normal inspection of chest Abdomen: normal bowel sounds, soft, nontender, no hepatosplenomegaly Musculoskeletal: no cyanosis or clubbing, extremities motor strength 5/5 Skin: no rashes, warm and dry normal turgor Neurologic: PERRL, EOMI, accommodation nl, no face palsy, no dysarthria CN's II-XI intact bilaterally and moves all extremities Psychiatric: A+Ox3, euthymic affect Lymphatic: no cervical or axillary lymphadenopathy : deferred Principal Dx & Hospital Course #1 = Principal Diagnosis (1) Stroke-like symptoms: (2) Headache: Plan This is a 48-year-old female who has significant past medical history of prediabetes, history of gastric bypass, migraine, GERD, depression with anxiety who presents ED secondary to strokelike symptoms. Symptoms started at approximately 11 AM and have now resolved by 1315. Symptoms included left-sided 1 second transient visual loss, left-sided facial numbness, left upper and lower extremity numbness and expressive aphasia. Symptoms have now resolved but have proceeded with a left-sided headache and photophobia which feels similar to her previous migraines. Head CT, head and neck CTA completely unremarkable. MRI negative for acute stroke. She was seen and examined by tele neurology Dr. Charlton and felt sx were likely complex migraine. Due to infrequency of migraines no medication changes were recommended. No further work up is indicated. Pt received Maxalt on the floor with improvement of sx. At time of discharge she still had a mild headache but felt she would improve greatly at home with rest and hydration. She was hemodynamically stable at time of discharge. All questions were answered and a follow up appt was obtained with PCP. Discharge Exam Constitutional: WD/WN, vitals as above, NAD, sitting up in bed, pleasant, conversing easily Head: Normocephalic, Atraumatic Eyes: PERRL, conjunctivae normal, anicteric sclerae ENMT: external ear and nose normal, oropharynx normal Neck: trachea midline, no thyromegaly normal visual inspection Respiratory: normal respiratory effort, lungs clear to auscultation, no wheeze, rales, rhonchi. Normal insp/exp effort, no accessory muscle use Cardiovascular: RRR, no murmur, no edema Vessels: no JVD or carotid bruit Chest: normal inspection of chest Abdomen: normal bowel sounds, soft, nontender, no hepatosplenomegaly Musculoskeletal: no cyanosis or clubbing, extremities motor strength 5/5 Skin: no rashes, warm and dry normal turgor Neurologic: PERRL, EOMI, accommodation nl, no face palsy, no dysarthria CN's II-XI intact bilaterally and moves all extremities Psychiatric: A+Ox3, euthymic affect Lymphatic: no cervical or axillary lymphadenopathy : deferred Updated Medication List Medication Instructions Recorded Confirmed Type amitriptyline 25 mg tablet 25 mg PO HS 01/26/23 01/26/23 History buspirone 15 mg tablet 15 mg PO BID 01/26/23 01/26/23 History ergocalciferol (vitamin D2) 1,250 1,250 mcg PO KWAN 01/26/23 01/26/23 History mcg (50,000 unit) capsule escitalopram oxalate 20 mg tablet 20 mg PO DAILY 01/26/23 01/26/23 History omeprazole 40 mg capsule,delayed 40 mg PO DAILY 01/26/23 01/26/23 History release pediatric [id number]-[id number]-[id number] 4 tab PO BID 01/26/23 01/26/23 History (Flintstones Complete (iron) chewable tablet) rizatriptan 10 mg tablet 10 mg PO DAILY PRN Migraine 01/26/23 01/26/23 History Headache semaglutide 2 mg/dose (8 mg/3 mL) 2 mg subcut KWAN 01/26/23 01/26/23 History subcutaneous pen injector (Ozempic) Hospital Stay Data Consultations 01/26/23 12:36 ED Decision to Admit Stat 01/26/23 13:04 Consult Neurology Routine Diagnostic Imagining Performed Chest X-Ray 01/26/23 11:51 XR chest 1V portable HISTORY: neuro deficit, acute stroke suspected COMPARISON: None. FINDINGS: The lungs are clear. Cardiac silhouette is normal in size. No pleural effusions. No pneumothorax. IMPRESSION: No acute process. ACT 112: Negative or not required by law. Electronically signed by: Fei Unger M.D. 01/26/2023 1:[address] 01/26/23 11:51 CT OF THE HEAD WITHOUT CONTRAST CLINICAL HISTORY: neuro deficit, acute stroke suspected COMPARISON STUDY: No previous studies for comparison. TECHNIQUE: Helical axial images of the head were obtained without IV contrast. Automated exposure control was utilized for the study. A dose lowering technique was utilized adhering to the principles of ALARA. FINDINGS: This study is mildly compromised by motion artifact. No acute intracranial hemorrhage, midline shift or mass effect is present. The ventricular system is unremarkable. The basal cisterns are patent. No extra- axial collections are present. There are no findings to suggest acute dural sinus thrombosis or acute territorial infarct. There are mucous retention cysts within the bilateral maxillary sinuses. Minimal ethmoid sinus mucosal thickening. IMPRESSION: No acute intracranial findings. ACT 112: Negative or not required by law. Electronically signed by: Atif Larsen M.D. 01/26/2023 12:33 PM Head CTA 01/26/23 11:51 CT angio head w con, CT angio neck with con CLINICAL HISTORY: neuro deficit, acute stroke suspected TECHNIQUE: CT angiography of the head and neck was performed following intravenous administration of iodinated contrast. Coronal and sagittal MIPS were obtained from the axial data set and were submitted for review. Automated dose lowering techniques and/or adjustment according to patient size were utilized for this examination. All measurements were calculated based on NASCET criteria. CT DOSE: 1882.35 mGy.cm Comparison: None available at the time of this dictation. FINDINGS: Lungs and soft tissues are unremarkable. CTA Neck: A 3 vessel aortic arch is shown. There is no significant atherosclerotic plaque in the aortic arch or the origins of the innominate, left common carotid, and left subclavian arteries. The common carotid, external carotid, cervical segments of the internal carotid arteries, and the cervical segments of the vertebral arteries are patent without hemodynamically significant stenosis. The left vertebral artery is dominant. CTA Head: The anterior and posterior cerebral circulations are patent. origin of the left posterior cerebral artery is seen. IMPRESSION: 1. No occlusion, hemodynamically significant stenosis, or dissection in the major cervical arteries. 2. No occlusion, hemodynamically significant stenosis, aneurysm, dissection, or arteriovenous malformation in the major intracranial arteries. Assessment of stenosis of the internal carotid arteries is based on NASCET criteria. ACT 112: Negative or not required by law. Electronically signed by: Eagle Lugo M.D. 01/26/2023 12:34 PM Neck CTA 01/26/23 11:51 CT angio head w con, CT angio neck with con CLINICAL HISTORY: neuro deficit, acute stroke suspected TECHNIQUE: CT angiography of the head and neck was performed following intravenous administration of iodinated contrast. Coronal and sagittal MIPS were obtained from the axial data set and were submitted for review. Automated dose lowering techniques and/or adjustment according to patient size were utilized for this examination. All measurements were calculated based on NASCET criteria. CT DOSE: 1882.35 mGy.cm Comparison: None available at the time of this dictation. FINDINGS: Lungs and soft tissues are unremarkable. CTA Neck: A 3 vessel aortic arch is shown. There is no significant atherosclerotic plaque in the aortic arch or the origins of the innominate, left common carotid, and left subclavian arteries. The common carotid, external carotid, cervical segments of the internal carotid arteries, and the cervical segments of the vertebral arteries are patent without hemodynamically significant stenosis. The left vertebral artery is dominant. CTA Head: The anterior and posterior cerebral circulations are patent. origin of the left posterior cerebral artery is seen. IMPRESSION: 1. No occlusion, hemodynamically significant stenosis, or dissection in the major cervical arteries. 2. No occlusion, hemodynamically significant stenosis, aneurysm, dissection, or arteriovenous malformation in the major intracranial arteries. Assessment of stenosis of the internal carotid arteries is based on NASCET criteria. ACT 112: Negative or not required by law. Electronically signed by: Eagle Lugo M.D. 01/26/2023 12:34 PM Brain MRI 01/26/23 13:30 MR brain wo con CLINICAL HISTORY: stroke symptoms TECHNIQUE: Multiplanar and multisequence MR images of the brain were obtained without intravenous contrast. Comparison: None available at the time of this dictation. FINDINGS: No abnormal restricted diffusion is identified. The white matter is unremarkable. The ventricular system is normal in appearance. No mass is seen. There is no mass effect or midline shift. There is no evidence of acute intraparenchymal hemorrhage. No extra axial fluid collections are seen. The corpus callosum, pituitary gland, and cerebellar tonsils appear grossly unremarkable. Prominent emphysema is seen in bilateral maxillary sinuses. The imaged portions of the paranasal sinuses, mastoid air cells, and orbits are unremarkable. IMPRESSION: No acute abnormality and in particular no evidence of acute infarct. ACT 112: Negative or not required by law. Electronically signed by: Eagle Lugo M.D. 01/26/2023 3:27 PM Pending Results Patient Have Any Pending Studies at Discharge: No Discharge Instructions Given to Patient (Per Discharging Provider) MEDICATION CHANGES: None SUMMARY OF TEST RESULTS: You were admitted to hospital due to concern for strokelike symptoms with left- sided visual changes, numbness and tingling and aphasia. You underwent head CT, CT angiogram of head and neck as well as MRI which all was unremarkable. You were seen by neurology who feels symptoms likely correlate with complex migraine. PENDING TEST RESULTS: None RECOMMENDATIONS FOR FOLLOW-UP: Please follow-up with primary care provider as scheduled. Continue all other medications. Continue Maxalt on an as-needed basis. Continue treating migraine at home conservatively with rest, hydratin and prn tylenol, excedrin or daily maxalt. Recommend hydrating with at least 2-1/2 to 3 L of water daily. OTHER INSTRUCTIONS: Seek medical attention if you have: * temperature above 101 * chest pain or trouble breathing * abdominal pain, nausea, vomiting * diarrhea, dark stools or bloody stools * any unanswered questions or concerns Call 911 if symptoms are severe. Please take good care of yourself. It has been a pleasure taking care of you. Please take care of yourself. If you have any questions regarding your recent hospitalization please contact [facility] and request liam [facility] @ [phone]. Ximena Waggoner PA-C Total Time Total Time Spent Total Time Spent (In Minutes): 45 minutes Supervising Physician Co-Signing Physician Notes I have seen and examined the patient and have discussed the case with the provider above. I agree with the assessment and plan as stated. Jose,
[2023-01-26] MEDS ORDERED: busPIRone 15 MG TAB PO SCH (21:00)
[2023-01-26] MEDS ORDERED: AMITRIPTYLINE HCL 25 MG TAB PO SCH (21:00)
--- NOTE | 2023-01-27 07:32 | Electrocardiogram Report ---
Test Reason : Blood Pressure : / mmHG Vent. Rate : 104 BPM Atrial Rate : 104 BPM P-R Int : 130 ms QRS Dur : 084 ms QT Int : 352 ms P-R-T Axes : 037 -26 034 degrees QTc Int : 462 ms Sinus tachycardia Otherwise normal ECG No previous ECGs available Confirmed by Chava Rosado ([id number]) on 01/27/2023 7:32:23 AM Referred By: REFERRED SELF Confirmed By:Chava Rosado
[2023-01-27] MEDS ORDERED: MULTIVITAMIN CHEWABLE TAB PO SCH (09:00)
[2023-01-27] MEDS ORDERED: PANTOprazole 40 MG TAB PO SCH (09:00)
[2023-01-27] MEDS ORDERED: ESCITALOPRAM OXALATE 20 MG TAB PO SCH (09:00)
[2023-01-29] MEDS ORDERED: ERGOCALCIFEROL 50,000 UNITS 1250 MCG CAP PO SCH (09:00)
== END 2023-01-26 18:32 | disposition home or self-care (01) ==
LOC: ED 11:41 → 2S 11:41